=== PATIENT | female | born 1975 | race Caucasian/White ===

== ENCOUNTER 2017-07-05 14:46 | Emergency (ER) | payer OTHER ==
[2017-07-05] MEDS ORDERED: cloNIDine HCl 0.1 MG TAB ONE (16:35)
[2017-07-05 17:19] LABS: BUN Blood Urea Nitrogen 11 mg/dL (6-20); Bicarbonate 22 mEq/L (21-31); Glucose Level 113 mg/dL (65-120); Potassium 3.7 mEq/L (3.6-5.0); Sodium Level 134 mEq/L (135-145)
--- NOTE | 2017-07-05 17:37 | EDPHYS ---
Physician Documentation [facility] Name: Sirena Nix Age: 41 yrs Sex: Female : 1975 Arrival Date: 07/05/2017 Time: 14:52 Bed 19 Private MD: ED Physician Fab Kaiser HPI: 07/05 16:31 This 41 yrs old Female presents to ER via Ambulatory with complaints of High rn Blood Pressure. 16:31 The patient has elevated blood pressure and discovered this at home. Onset: The rn symptoms/episode began/occurred at an unknown time. Modifying factors:. Severity of symptoms: At its worst the blood pressure was moderate, in the emergency department the blood pressure is unchanged. The patient has experienced similar episodes in the past. The patient has not recently seen a physician. Reports high blood pressure, unsure when began, states has been having high blood pressure for weeks, recently switched BP meds 2 weeks ago, taking 40mg lisinopril, compliant, reports heaviness of arms, no headache/vision changes/chest pain/sob/abd pain/focal neurological problems. Reports feeling anxious because frnd told her she needed to come to ER.. 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 - Family history:: not pertinent. - Social history:: Smoking status: Patient/guardian denies using tobacco. - Hospitalizations: : No recent hospitalization is reported. ROS: 16:31 Constitutional: Negative for fever, chills, and weight loss, Eyes: Negative for injury, rn pain, redness, and discharge, ENT: Negative for injury, pain, and discharge, Neck: Negative for injury, pain, and swelling, Cardiovascular: Negative for chest pain, palpitations, and edema, Respiratory: Negative for shortness of breath, cough, wheezing, and pleuritic chest pain, Abdomen/GI: Negative for abdominal pain, nausea, vomiting, diarrhea, and constipation, Back: Negative for injury and pain, MS/Extremity: Negative for injury and deformity, Skin: Negative for injury, rash, and discoloration, Neuro: Negative for headache, weakness, numbness, tingling, and seizure. Exam: 16:31 Constitutional: This is a well developed, well nourished patient who is awake, alert, rn pacing in room, appears anxious Head/Face: Normocephalic, atraumatic. Eyes: Pupils equal round and reactive to light, extra-ocular motions intact. Lids and lashes normal. Conjunctiva and sclera are non-icteric and not injected. Cornea within normal limits. Periorbital areas with no swelling, redness, or edema. Neck: Trachea midline, no thyromegaly or masses palpated, and no cervical lymphadenopathy. Supple, full range of motion without nuchal rigidity, or vertebral point tenderness. No Meningismus. Cardiovascular: Regular rate and rhythm with a normal S1 and S2. No gallops, murmurs, or rubs. Normal PMI, no JVD. No pulse deficits. Respiratory: Lungs have equal breath sounds bilaterally, clear to auscultation and percussion. No rales, rhonchi or wheezes noted. No increased work of breathing, no retractions or nasal flaring. Abdomen/GI: Soft, non-tender, with normal bowel sounds. No distension or tympany. No guarding or rebound. No evidence of tenderness throughout. Skin: Warm, dry with normal turgor. Normal color with no rashes, no lesions, and no evidence of cellulitis. MS/ Extremity: Pulses equal, no cyanosis. Neurovascular intact. Full, normal range of motion. Equal circumference. Neuro: Awake and alert, GCS 15, oriented to person, place, time, and situation. Cranial nerves II-XII grossly intact. Motor strength 5/5 in all extremities. Sensory grossly intact. Cerebellar exam normal. Normal gait. 17:36 ECG was reviewed by the Attending Physician. rn Vital Signs: 15:05 BP 178 / 111; Pulse 95; Resp 18; Temp 97.8(TE); Pulse Ox 98% on R/A; Weight 127.01 kg; hj Height 5 ft. 10 in. (177.80 cm); Pain 0/10; 17:09 BP 140 / 95; Pulse 86; Resp 21 S; Pulse Ox 99% on R/A; ae1 17:27 BP 134 / 85; Pulse 89; Resp 15; Pulse Ox 99% on R/A; ae1 15:05 Body Mass Index 40.18 (127.01 kg, 177.80 cm) hj MDM: 16:07 Patient medically screened. rn 17:36 Differential diagnosis: hypertensive crisis, Malignant HTN. Data reviewed: vital signs, rn nurses notes, lab test result(s), EKG, and as a result, I will discharge patient. Counseling: I had a detailed discussion with the patient and/or guardian regarding: the historical points, exam findings, and any diagnostic results supporting the discharge/admit diagnosis, lab results, the need for outpatient follow up, to return to the emergency department if symptoms worsen or persist or if there are any questions or concerns that arise at home. Special discussion: I discussed with the patient/guardian in detail that at this point there is no indication for admission to the hospital. It is understood, however, that if the symptoms persist or worsen the patient needs to return immediately for re-evaluation. 07/05 16:22 Order name: Troponin (emerg Dept Use Only) rn 07/05 16:22 Order name: BMP rn 07/05 16:22 Order name: EKG; Complete Time: 16:22 rn 07/05 16:22 Order name: Troponin (Emerg Dept Use Only); Complete Time: 17:36 EDNV 07/05 16:22 Order name: Basic Metabolic Panel; Complete Time: 17:36 EDNV 07/05 16:22 Order name: IV Start; Complete Time: 16:57 rn 07/05 16:22 Order name: EKG - Nurse/Tech; Complete Time: 17:09 rn EC:36 Rate is 77 beats/min. Rhythm is regular. QRS [place] is Normal. [place] interval is normal. QRS rn interval is normal. QT interval is normal. No Q waves. T waves are Normal. No ST changes noted. Clinical impression: Normal ECG. Interpreted by me. Administered Medications: 16:48 Drug: cloNIDine 0.2 mg Route: PO; ae1 17:39 Follow up: Response: Blood pressure is lowered ae1 Disposition: 07/05/17 17:37 Discharged to Home. Impression: Hypertension. - Condition is Stable. - Discharge Instructions: Hypertension. - Medication Reconciliation Form, Thank You Letter, Antibiotic Education, Prescription Opioid Use form. - Follow up: Private Physician; When: As needed; Reason: Recheck today's complaints, Re-evaluation by your physician. - Problem is new. - Symptoms have improved. Signatures: Dispatcher [employer] Fab Mclaughlin MD MD rn Joaquin, Henry RN Matt Park RN RN ae1 Corrections: (The following items were deleted from the chart) 17:54 17:37 07/05/2017 17:37 Discharged to Home. Impression: Hypertension. Condition is ae1 Stable. Forms are Medication Reconciliation Form, Thank You Letter, Antibiotic Education, Prescription Opioid Use. Follow up: Private Physician; When: As needed; Reason: Recheck today's complaints, Re-evaluation by your physician. Problem is new. Symptoms have improved. rn
--- NOTE | 2017-07-05 17:37 | ER ---
Nurse's Notes [facility] Name: Sirena Nix Age: 41 yrs Sex: Female : 1975 Arrival Date: 07/05/2017 Time: 14:52 Bed 19 Private MD: Diagnosis: Hypertension Presentation: 07/05 15:03 Presenting complaint: Patient states: i think my BP was really high, at home- BP-182/120; hx of hypertension; checked BP after taking meds; reports nausea; denies headache;. Transition of care: patient was not received from another setting of care. Onset of symptoms was July 05, 2017. Initial Sepsis Screen: Does the patient meet any 2 criteria? No. Patient's initial sepsis screen is negative. Does the patient have a suspected source of infection? No. Patient's initial sepsis screen is negative. Care prior to arrival: None. 15:03 Method Of Arrival: Ambulatory 15:03 Acuity: PETERSON 3 hj Triage Assessment: 15:04 General: Appears in no apparent distress. uncomfortable, Behavior is calm, cooperative, hj appropriate for age. Pain: Denies pain. 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 - Family history:: not pertinent. - Social history:: Smoking status: Patient/guardian denies using tobacco. - Hospitalizations: : No recent hospitalization is reported. Screenin:31 Abuse screen: Denies threats or abuse. Nutritional screening: No deficits noted. ae1 Tuberculosis screening: No symptoms or risk factors identified. Fall Risk None identified. Assessment: 16:00 General: Appears in no apparent distress. comfortable, obese. Pain: Denies pain. Neuro: ae1 Level of Consciousness is awake, alert, obeys commands, Oriented to person, place, time, situation. Cardiovascular: Heart tones S1 S2 present Patient's skin is warm and dry. Respiratory: Airway is patent Respiratory effort is even, unlabored, Respiratory pattern is regular, symmetrical, Breath sounds are clear bilaterally. GI: No signs and/or symptoms were reported involving the gastrointestinal system. Abdomen is round obese. : No signs and/or symptoms were reported regarding the genitourinary system. EENT: No signs and/or symptoms were reported regarding the EENT system. Derm: Skin is pink, warm \\T\\ dry. Musculoskeletal: No signs and/or symptoms reported regarding the musculoskeletal system. 16:00 Reassessment: Patient states she can tell hen her blood pressure is high, states she ae1 feels "funny". 17:35 Reassessment: Patient appears in no apparent distress at this time. Patient and/or ae1 family updated on plan of care and expected duration. Pain level reassessed. Patient states feeling better. Vital Signs: 15:05 BP 178 / 111; Pulse 95; Resp 18; Temp 97.8(TE); Pulse Ox 98% on R/A; Weight 127.01 kg; hj Height 5 ft. 10 in. (177.80 cm); Pain 0/10; 17:09 BP 140 / 95; Pulse 86; Resp 21 S; Pulse Ox 99% on R/A; ae1 17:27 BP 134 / 85; Pulse 89; Resp 15; Pulse Ox 99% on R/A; ae1 15:05 Body Mass Index 40.18 (127.01 kg, 177.80 cm) ED Course: 14:52 Patient arrived in ED. mr 15:04 Triage completed. hj 15:05 Arm band placed on left wrist. hj 16:07 Fab Kaiser MD is Attending Physician. rn 16:07 Matt Toro, HARRY is Primary Nurse. ae1 16:30 Inserted saline lock: 20 gauge in right antecubital area, using aseptic technique. ae1 Blood collected. 17:08 Placed in gown. Bed in low position. Call light in reach. Side rails up X 1. Cardiac ae1 monitor on. Pulse ox on. NIBP on. Warm blanket given. 17:10 EKG done, by lidar technician. reviewed by Fab Kaiser MD. at1 17:14 EKG done, by lidar technician. reviewed by Fab Kaiser MD. at1 17:47 No provider procedures requiring assistance completed. IV discontinued, intact, ae1 bleeding controlled, No redness/swelling at site. Pressure dressing applied. Administered Medications: 16:48 Drug: cloNIDine 0.2 mg Route: PO; ae1 17:39 Follow up: Response: Blood pressure is lowered ae1 Outcome: 17:37 Discharge ordered by . rn 17:47 Discharged to home ambulatory. ae1 17:47 Condition: stable 17:47 Discharge instructions given to patient, Instructed on discharge instructions, Demonstrated understanding of instructions. 17:54 Patient left the ED. ae1 Signatures: Beverly Bedolla Fab Kaiser MD MD rn Maryuri estrada, flat knitter helper EKG Tat1 Kavin Khanna RN RN hj Elliott, Andrea, RN RN ae1 Corrections: (The following items were deleted from the chart) 15:06 15:05 Pulse 95bpm; Resp 18bpm; Pulse Ox 98% RA; Temp 97.8F Temporal; 127.01 kg; Height hj 5 ft. 10 in.; BMI: 40.1; Pain 0/10; hj 17:36 16:00 General: Appears in no apparent distress. comfortable, obese, ae1 ae1
--- NOTE | 2017-07-05 17:54 | EKG ---
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
== END 2017-07-05 17:54 | disposition home or self-care (01) ==
LOC: ER 14:46
DX: I10 Essential (primary) hypertension (principal); Z88.2 Allergy status to sulfonamides
CPT/HCPCS: 36415; 80048; 84484; 93005; 99284